=== PATIENT | male | born 1985 | race Caucasian/White ===

== ENCOUNTER → 2022-06-20 16:33 | Outpatient (CLI) | payer OTHER, SELFPAY | PROVIDERS: PCP Physician Assistant Medical; Visit Provider Physician Assistant | DX: R10.9 Unspecified abdominal pain (principal) | CPT/HCPCS: 87086 ==

== ENCOUNTER → 2022-08-02 14:33 | Outpatient (CLI) | payer OTHER, SELFPAY ==
[2022-08-02 20:16] LABS: Add Manual Diff / Slide Review NO; Basophils Absolute Auto 100 /uL (0-100); Basophils Percent Auto 0.7 % (0-2); Eosinophils Absolute Auto 100 /uL (0-450); Eosinophils Percent Auto 1.1 % (2-4); Hematocrit 42.2 % (41-53); Hemoglobin 15.1 g/dL (13.5-17.5); Lymphocytes Absolute Auto 2300 /uL (1100-4500); Mean Corpuscular HGB Conc 35.7 % (30-36); Mean Corpuscular Hemoglobin 31.5 PG (26-34); Mean Corpuscular Volume 88.3 fL (80-100); Monocytes Absolute Auto 500 /uL (0-900); Monocytes Percent Auto 6.9 % (3-14); Neutrophils Absolute Auto 4200 /uL (1500-7000); Neutrophils Percent Auto 59.3 % (50-75); Platelet Count 197 X10^3/uL (150-400); Red Blood Cell Count 4.78 X10^6/uL (4.5-5.9); Red Cell Distribution Width 13.4 % (11.6-14.8); White Blood Cell Count 7.1 X10^3/uL (4.5-11.0)
[2022-08-02 20:29] LABS: Alanine Aminotransferase 15 IU/L (<50); Albumin 4.2 g/dL (3.5-5.0); Albumin Globulin Ratio 1.3 (1.0-2.8); Alkaline Phosphatase 68 U/L (38-126); Aspartate Aminotransferase 23 IU/L (17-59); BUN Creatinine Ratio 13.3 (6-22); Bilirubin Total 0.4 mg/dL (0.2-1.3); Blood Urea Nitrogen 13 mg/dL (9-20); Calcium 8.9 mg/dL (8.4-10.2); Carbon Dioxide 29 mmol/L (22-32); Chloride 102 mmol/L (98-107); Estimated Glomerular Filt Rate > 60 mL/min (>60); Globulin 3.2 g/dL (1.7-4.1); Glucose 93 mg/dL (70-100); HEMOLYSIS < 15 (0-50); Potassium 4.2 mmol/L (3.4-5.1); Sodium 139 mmol/L (137-145); Total Protein 7.4 g/dL (6.3-8.2)
== END ==
PROVIDERS: PCP Physician Assistant Medical; Visit Provider Physician Assistant
DX: R10.9 Unspecified abdominal pain (principal); R31.9 Hematuria, unspecified
CPT/HCPCS: 80053; 85025

== ENCOUNTER → 2023-06-20 09:07 | Outpatient (CLI) | payer OTHER, SELFPAY ==
[2023-06-20 19:25] LABS: Add Manual Diff / Slide Review NO; Basophils Absolute Auto 0 /uL (0-100); Basophils Percent Auto 0.5 % (0-2); Eosinophils Absolute Auto 100 /uL (0-450); Eosinophils Percent Auto 0.8 % (2-4); Hematocrit 43.2 % (41-53); Hemoglobin 14.8 g/dL (13.5-17.5); Lymphocytes Absolute Auto 2200 /uL (1100-4500); Lymphocytes Percent Auto 28.9 % (25-40); Mean Corpuscular HGB Conc 34.2 % (30-36); Mean Corpuscular Hemoglobin 30.8 PG (26-34); Monocytes Absolute Auto 600 /uL (0-900); Monocytes Percent Auto 8.3 % (3-14); Neutrophils Absolute Auto 4700 /uL (1500-7000); Neutrophils Percent Auto 61.5 % (50-75); Platelet Count 256 X10^3/uL (150-400); Red Cell Distribution Width 13.4 % (11.6-14.8); White Blood Cell Count 7.6 X10^3/uL (4.5-11.0)
[2023-06-20 19:27] LABS: Alanine Aminotransferase 16 IU/L (<50); Albumin 4.4 g/dL (3.5-5.0); Albumin Globulin Ratio 1.3 (1.0-2.8); Alkaline Phosphatase 79 U/L (38-126); Aspartate Aminotransferase 23 IU/L (17-59); Bilirubin Total 0.7 mg/dL (0.2-1.3); Blood Urea Nitrogen 12 mg/dL (9-20); C-Reactive Protein Quant < 0.5 mg/dL (<1.0); Calcium 9.5 mg/dL (8.4-10.2); Carbon Dioxide 31 mmol/L (22-32); Chloride 100 mmol/L (98-107); Estimated Glomerular Filt Rate > 60 mL/min (>60); Globulin 3.4 g/dL (1.7-4.1); Glucose 95 mg/dL (70-100); HDL Cholesterol 58 mg/dL (40-60); Potassium 4.2 mmol/L (3.4-5.1); Sodium 136 mmol/L (137-145); Total Protein 7.8 g/dL (6.3-8.2); Triglycerides 121 mg/dL (35-150)
[2023-06-20 19:30] LABS: HEMOLYSIS < 15 (0-50)
[2023-06-20 19:31] LABS: Cholesterol 341 mg/dL (140-199)
[2023-06-20 19:32] LABS: LDL Cholesterol Calculated 259 mg/dL (<100)
[2023-06-20 19:39] LABS: Free T3, Triiodothyronine Free 4.05 pg/mL (2.77-5.27)
[2023-06-20 19:42] LABS: Erythrocyte Sedimentation Rate 6 MM/HR (0-15)
[2023-06-20 19:52] LABS: TSH w/ Reflex to FT4 4.82 uIU/mL (0.47-4.68)
[2023-06-20 20:42] LABS: Free T4, Direct Thyroxine 0.96 ng/dL (0.78-2.19)
== END ==
PROVIDERS: PCP Physician Assistant Medical; Visit Provider Physician Assistant Medical
DX: Z13.220 Encounter for screening for lipoid disorders (principal); F90.1 Attention-deficit hyperactivity disorder, predominantly hyperactive type; R10.9 Unspecified abdominal pain; R11.0 Nausea; Z79.899 Other long term (current) drug therapy; R35.0 Frequency of micturition
CPT/HCPCS: 80053; 80061; 84439; 84443; 84481; 85025; 85651; 86140

== ENCOUNTER → 2023-07-13 10:58 | Outpatient (CLI) | payer OTHER, SELFPAY ==
[2023-07-13 20:50] LABS: Rheumatoid Factor < 8.6 IU/mL (<12.0)
[2023-07-13 21:15] LABS: Free T3, Triiodothyronine Free 3.96 pg/mL (2.77-5.27)
[2023-07-13 21:29] LABS: TSH w/ Reflex to FT4 3.26 uIU/mL (0.47-4.68)
== END ==
PROVIDERS: PCP Physician Assistant Medical; Visit Provider Physician Assistant Medical
DX: E03.9 Hypothyroidism, unspecified (principal); M25.531 Pain in right wrist; M25.532 Pain in left wrist
CPT/HCPCS: 84443; 84481; 86430

== ENCOUNTER → 2023-08-17 07:44 | Outpatient (CLI) | payer OTHER, SELFPAY | LOC: PHYS 07:45 | PROVIDERS: Family Provider Physician Assistant Medical; PCP Physician Assistant Medical; Referring Provider Physician Assistant Medical; Visit Provider Physician Assistant Medical | DX: R29.898 Other symptoms and signs involving the musculoskeletal system (principal); R53.83 Other fatigue; M25.531 Pain in right wrist; M25.532 Pain in left wrist; G89.29 Other chronic pain | CPT/HCPCS: 95886; 95911 ==

== ENCOUNTER → 2023-09-07 08:58 | Outpatient (CLI) | payer OTHER, SELFPAY ==
[2023-09-07 20:35] LABS: Free T3, Triiodothyronine Free 4.61 pg/mL (2.77-5.27)
[2023-09-07 20:49] LABS: TSH w/ Reflex to FT4 2.64 uIU/mL (0.47-4.68)
== END ==
PROVIDERS: Family Provider Physician Assistant Medical; PCP Physician Assistant Medical; Visit Provider Physician Assistant Medical
DX: E03.9 Hypothyroidism, unspecified (principal)
CPT/HCPCS: 84443; 84481

== ENCOUNTER → 2023-11-02 11:48 | Outpatient (CLI) | payer OTHER, SELFPAY | PROVIDERS: Family Provider Physician Assistant Medical; PCP Physician Assistant Medical; Visit Provider Physician Assistant Medical | DX: E03.9 Hypothyroidism, unspecified (principal) | CPT/HCPCS: 84443 ==